=== PATIENT | male | born 1935 | race Caucasian/White ===

== ENCOUNTER 2019-01-22 06:35 | Inpatient (IN) ==
[2019-01-18 12:59] LABS: Basophils # 0.1 10*3/uL (0.0-0.2); Eosinophils # 0.2 10*3/uL (0.0-0.87); Hemoglobin 14.3 GM/DL (14.0-18.0); Immature Granulocytes % 0.3 %; Immature Granulocytes Absolute 0.02 #; Lymphocytes # 2.1 10*3/uL (1.4-4.0); Lymphocytes % 33.3 % (21.2-54.2); Mean Corpuscular HGB Conc 31.8 GM/DL (32-36); Mean Corpuscular Volume 101.6 FL (87-102); Mean Platelet Volume 10.1 FL (9.6-12.0); Neutrophils % 56.4 % (38.7-73.9); Platelet Count 155 T/CUMM (130-400); Red Blood Count 4.43 MC/CUMM (3.8-5.5); Red Cell Distribution Width 14.2 % (9.3-17.3); White Blood Count 6.3 T/CUMM (4-12)
[2019-01-18 13:17] LABS: Albumin 3.1 G/DL (3.4-5.0); Bilirubin,Total 0.6 MG/DL (0.2-1.0); Calcium 8.5 MG/DL (8.5-10.1); Osmolality,Calculated 281.4 MOS/KG (273-304); Total Protein 7.1 G/DL (6.4-8.3)
[~2019-01-22 06:35] MED LIST: FAMOTIDINE 20 MG TABLET ONE; FAMOTIDINE 20 MG TABLET PO ONE; LACTATED RINGERS 1,000 ML IV SCH; ceFAZolin 1,000 MG VIAL ONE
[2019-01-22] MEDS ORDERED: ALBUTEROL/IPRATROPIUM 3 ML NEB RESP TX ONE (06:39)
[2019-01-22] MEDS ORDERED: LIDOCAINE 1% 20 ML VIAL ONE (08:13)
[2019-01-22] MEDS ORDERED: HEPARIN 5,000 UNIT/1 ML VIAL ONE (08:13)
[2019-01-22] MEDS ORDERED: NITROGLYCERIN DRIP 50 MG/250 ML BOTTLE IV ONE ×2 (08:35→11:55)
[2019-01-22] MEDS ORDERED: PHENYLEPHRINE 10 MG/1 ML VIAL IV ONE (08:35)
[2019-01-22] MEDS ORDERED: HEPARIN/NACL 0.9% 2 UNITS/ML 500 ML IV ONE ×2 (08:35→11:52)
[2019-01-22] MEDS ORDERED: HYDROmorphone 2 MG/1 ML VIAL IV PRN ×2 (11:22)
[2019-01-22] MEDS ORDERED: GLUCAGON 1 MG VIAL IM PRN (11:22)
[2019-01-22] MEDS ORDERED: PROMETHAZINE 25 MG/1 ML VIAL IM PRN (11:22)
[2019-01-22] MEDS ORDERED: oxyCODONE/ACETAMINOPHEN 5-325 MG TABLET PO PRN ×2 (11:22)
[2019-01-22] MEDS ORDERED: NALOXONE 0.4 MG/ML VIAL IV PRN (11:22)
[2019-01-22] MEDS ORDERED: DEXTROSE 50% 25 GM/50 ML VIAL IV PRN (11:22)
[2019-01-22] MEDS ORDERED: ONDANSETRON 4 MG/2 ML VIAL IV PRN (11:22)
[2019-01-22] MEDS ORDERED: NITROPRUSSIDE 100 MG in DEXTROSE 5% 250 ML IV SCH (11:30)
[2019-01-22] MEDS ORDERED: PROPOFOL 200 MG/20 ML VIAL IV ONE (11:52)
[2019-01-22] MEDS ORDERED: SEVOFLURANE 1 UNIT/15 MINUTE INH ONE (11:52)
[2019-01-22] MEDS: PHENYLEPHRINE DRIP 40 MG/250 ML PREMIX IV SCH (11:52)
[2019-01-22] MEDS ORDERED: fentaNYL 100 MCG/2 ML VIAL ONE (11:52)
[2019-01-22] MEDS ORDERED: MIDAZOLAM 2 MG/2 ML VIAL ONE (11:53)
[2019-01-22] MEDS ORDERED: ETOMIDATE 40 MG/20 ML VIAL IV ONE (11:53)
[2019-01-22] MEDS ORDERED: DEXAMETHASONE 4 MG/1 ML VIAL ONE (11:53)
[2019-01-22] MEDS ORDERED: ATROPINE 0.4 MG/1 ML VIAL ONE (11:53)
[2019-01-22] MEDS ORDERED: ONDANSETRON 4 MG/2 ML VIAL ONE (11:53)
[2019-01-22] MEDS ORDERED: GLYCOPYRROLATE 0.4 MG/2 ML VIAL ONE (11:54)
[2019-01-22] MEDS ORDERED: PROTAMINE SULFATE 50 MG/5 ML VIAL IV ONE (11:54)
[2019-01-22] MEDS ORDERED: PHENYLEPHRINE 1 MG/10 ML SYRINGE IV ONE (11:54)
[2019-01-22] MEDS ORDERED: NEOSTIGMINE 10 MG/10 ML VIAL ONE (11:54)
[2019-01-22] MEDS ORDERED: ROCURONIUM 100 MG/10 ML VIAL IV ONE (11:54)
[2019-01-22] MEDS ORDERED: LACTATED RINGERS 1,000 ML IV ONE (11:55)
[2019-01-22] MEDS ORDERED: HEPARIN 10,000 UNIT/10 ML VIAL ONE (11:55)
[2019-01-22] MEDS ORDERED: SODIUM CHLORIDE 0.9% 250 ML IV ONE (11:55)
[2019-01-22] MEDS: LACTATED RINGERS 1,000 ML IV SCH ×2 (17:00→21:20)
[2019-01-22] MEDS ORDERED: ATENOLOL 25 MG TABLET PO SCH (19:00)
[2019-01-22] MEDS: GLIMEPIRIDE 2 MG TABLET PO SCH (19:17)
[2019-01-22] MEDS: ALLOPURINOL 100 MG TABLET PO SCH (21:20)
[2019-01-23] MEDS: LACTATED RINGERS 1,000 ML IV SCH ×2 (03:42→08:17)
[2019-01-23] MEDS ORDERED: CLOPIDOGREL 75 MG TABLET PO SCH (09:00)
[2019-01-23] MEDS ORDERED: ASPIRIN EC 81 MG TABLET PO SCH (09:00)
[2019-01-23] MEDS: FUROSEMIDE 20 MG TABLET PO SCH (09:05)
[2019-01-23] MEDS: ASPIRIN EC 81 MG TABLET PO SCH (09:05)
[2019-01-23] MEDS: ALLOPURINOL 100 MG TABLET PO SCH ×2 (09:05→21:12)
[2019-01-23] MEDS: SIMVASTATIN 40 MG TABLET PO SCH (09:05)
[2019-01-23] MEDS: POTASSIUM CHLORIDE 8 MEQ CAPSULE PO SCH (09:05)
[2019-01-23] MEDS: CLOPIDOGREL 75 MG TABLET PO SCH (09:05)
[2019-01-23] MEDS: PHENYLEPHRINE DRIP 40 MG/250 ML PREMIX IV SCH (10:35)
[2019-01-23] MEDS: INSULIN LISPRO 100 UNIT/ML SUBCUT SCH ×3 (12:09→21:13)
[2019-01-23] MEDS: GLIMEPIRIDE 2 MG TABLET PO SCH (21:12)
[2019-01-24] MEDS: ASPIRIN EC 81 MG TABLET PO SCH (09:40)
[2019-01-24] MEDS: FUROSEMIDE 20 MG TABLET PO SCH (09:40)
[2019-01-24] MEDS: ALLOPURINOL 100 MG TABLET PO SCH (09:40)
[2019-01-24] MEDS: CLOPIDOGREL 75 MG TABLET PO SCH (09:41)
[2019-01-24] MEDS: SIMVASTATIN 40 MG TABLET PO SCH (09:41)
[2019-01-24] MEDS: POTASSIUM CHLORIDE 8 MEQ CAPSULE PO SCH (09:41)
[2019-01-24 11:30] VITALS: BP 165/79
[2019-01-24] MEDS: INSULIN LISPRO 100 UNIT/ML SUBCUT SCH ×2 (11:49→11:52)
== END 2019-01-24 13:52 | disposition home or self-care (01) | DRG 38 ==
LOC: N.SDSINP 06:35 → N.ICU 12:24 → N.TELES 01-23 14:45
PROVIDERS: ADMIT Surgery; ATTEND Surgery